=== PATIENT | male | born 1990 | race Hispanic/Latino ===

== ENCOUNTER 2021-06-23 02:52 | Emergency (ER) | payer SELFPAY ==
[2021-06-23 02:56] VITALS: BP 159/85; PULSE 68; RESP 16; TEMP 36.7; O2SAT 99
--- NOTE | 2021-06-23 03:06 | ED.GENADULT ---
HPI - General Adult General Chief complaint: Dental/Oral Stated complaint: dental pain Time Seen by Provider: 06/23/21 02:56 History of Present Illness HPI narrative: Patient is a 31-year-old gentleman who presents the emergency department with chief complaint of dental pain. The patient reports that for the last day has been having pain in his upper incisor reports that it hurts whenever he bites whenever he touches the area denies redness or swelling to the area reports has not seen a dentist because he does not have access to a dentist. The patient denies fever denies trismus Related Data Allergies Allergy/AdvReac Type Severity Reaction Status Date / Time No Known Allergies Allergy Verified 06/23/21 03:10 Review of Systems Review of Systems: A 10 system review of systems was completed on the patient and is negative except for what is stated in the HPI. Nursing and ancillary documentation was reviewed. Exam Narrative: GENERAL: Well-appearing, well-nourished, and in no acute distress. HEAD: Normocephalic, atraumatic. EYES: PERRLA and EOMI. ENT: Nares clear, no rhinorrhea or epistaxis. Mucous membranes moist. There is tenderness to palpation in the left upper canine/incisor NECK: Supple. CHEST: Clear to auscultation. No respiratory distress. HEART: Regular rate and rhythm. No murmur heard. Normal peripheral pulses. ABDOMEN: Soft, nontender, nondistended, normal active bowel sounds. EXTREMITIES: Normal range of motion. No edema. SKIN: Warm, dry, no rash. NEURO: No focal deficits. Alert and oriented x3. PSYCH: Normal mood and affect. Course Vital Signs Vital signs: Vital Signs Temperature 36.7 C 06/23/21 02:56 Pulse Rate 68 06/23/21 02:56 Respiratory Rate 16 06/23/21 02:56 Blood Pressure 159/85 H 06/23/21 02:56 Pulse Oximetry 99 06/23/21 02:56 Temperature 36.7 C 06/23/21 02:56 Pulse Rate 68 06/23/21 02:56 Respiratory Rate 16 06/23/21 02:56 Blood Pressure 159/85 H 06/23/21 02:56 Pulse Oximetry 99 06/23/21 02:56 Medical Decision Making Vital Signs Vital Signs: Vital Signs Temperature 36.7 C 06/23/21 02:56 Pulse Rate 68 06/23/21 02:56 Respiratory Rate 16 06/23/21 02:56 Blood Pressure 159/85 H 06/23/21 02:56 Pulse Oximetry 99 06/23/21 02:56 Temperature 36.7 C 06/23/21 02:56 Pulse Rate 68 06/23/21 02:56 Respiratory Rate 16 06/23/21 02:56 Blood Pressure 159/85 H 06/23/21 02:56 Pulse Oximetry 99 06/23/21 02:56 Discharge Plan Discharge Clinical Impression: Odontalgia Patient Disposition: Home, Self-Care Condition: Stable Instructions: Antibiotic Form, Toothache (ED) Additional Instructions: Please follow-up with a dentist as soon as possible Prescriptions: New amoxicillin 500 mg capsule 500 mg PO Q12H Qty: 20 RF: 0 ibuprofen 800 mg tablet 800 mg PO TID PRN (Reason: pain) Qty: 30 RF: 0 Follow-up/Referrals: PHYSICIAN NOT ON STAFF,NONSTAFF [Non-Staff] - Time of Disposition: 03:12
[2021-06-23] MEDS: IBUPROFEN 400 MG TABLET 800 MG PO (03:10)
[2021-06-23] MEDS: AMOXICILLIN 500 MG CAPSULE PO (03:10)
== END 2021-06-23 03:33 | disposition home or self-care (01) ==
PROVIDERS: Emergency Provider Emergency Medicine
DX: K08.89 Other specified disorders of teeth and supporting structures (principal)
CPT/HCPCS: 99283; A9270